=== PATIENT | female | born 1990 | race Caucasian/White ===

== ENCOUNTER → 2016-12-26 | Outpatient (CLI) | payer MEDICAID ==
[~2016-12-26] MED LIST: ALPR1TAB2 PO; ARIP2TAB2 PO; FLUO10CA13 PO; OXYC-302 PO; PNV1TABL4 PO
== END ==
LOC: STAR 09:23
PROVIDERS: ATTEND Otolaryngology
DX: Z02.9 Encounter for administrative examinations, unspecified (principal)

== ENCOUNTER 2017-01-02 05:41 | Day surgery (SDC) | payer MEDICAID ==
[~2017-01-02] VITALS: Ht 175.3 cm; Wt 87.9 kg
[2017-01-02 06:33] VITALS: BP 117/79
[2017-01-02] MEDS ORDERED: LACTATED RINGERS 1,000 ML IV SCH (06:33)
[2017-01-02 06:45] LABS: HCG UR LOT HCG7030192
[2017-01-02 06:56] LABS: HCG UR OBC PASS
[2017-01-02] MEDS ORDERED: FENTANYL PF 100 MCG/2ML ONE ×3 (07:02→08:18)
[2017-01-02] MEDS ORDERED: MIDAZOLAM 1 MG/ML, 2ML ONE (07:03)
[2017-01-02] MEDS ORDERED: OXYMETAZOLINE NASAL SPRAY 0.05%, 15ML ONE (07:05)
[2017-01-02] MEDS ORDERED: ONDANSETRON 2MG/ML, 2ML ONE ×2 (07:10→07:11)
[2017-01-02] MEDS ORDERED: PROPOFOL 10 MG/ML, 20ML ONE (07:10)
[2017-01-02] MEDS ORDERED: SUCCINYLCHOLINE 20 MG/ML, 10ML ONE (07:10)
[2017-01-02] MEDS ORDERED: DEXAMETHASONE 4 MG/ML, 1ML ONE ×2 (07:10→07:11)
[2017-01-02] MEDS ORDERED: ROCURONIUM 10MG/ML,5ML ONE (07:10)
[2017-01-02] MEDS ORDERED: MEPERIDINE/PF 25MG/0.5ML IVPush PRN (07:30)
[2017-01-02] MEDS ORDERED: OXYcodone 5 MG/5 ML ORAL.SOL UDC PO PRN (07:30)
[2017-01-02] MEDS ORDERED: LABETALOL 5MG/ML, 20ML IV PRN (07:30)
[2017-01-02] MEDS ORDERED: ONDANSETRON 2MG/ML, 2ML IVPush PRN (07:30)
[2017-01-02] MEDS ORDERED: ACETAMINOPHEN 325 MG TABLET PO PRN (07:30)
[2017-01-02] MEDS ORDERED: PROMETHAZINE 25 MG/ML, 1ML IV PRN (07:30)
[2017-01-02] MEDS ORDERED: ALBUTEROL SULFATE 2.5 MG/3 ML NPPB PRN (07:30)
[2017-01-02] MEDS ORDERED: MIDAZOLAM 1 MG/ML, 2ML IV PRN (07:30)
[2017-01-02] MEDS ORDERED: hydrALAzine 20 MG/ML, 1ML IV PRN (07:30)
[2017-01-02] MEDS ORDERED: HYDROmorphone 1 MG/ML, 1ML IV PRN (07:30)
[2017-01-02] MEDS ORDERED: NEOSTIGMINE 1 MG/ML, 10ML ONE (07:56)
[2017-01-02] MEDS ORDERED: GLYCOPYRROLATE 0.4 MG/2 ML, 2ML ONE (07:56)
[2017-01-02] MEDS ORDERED: ACETAMINOPHEN 650 MG/20.3 ML UDC ONE (08:18)
[2017-01-02] MEDS ORDERED: OXYcodone 5 MG/5 ML ORAL.SOL UDC ONE (08:19)
[2017-01-02] MEDS: FENTANYL PF 100 MCG/2ML IV PRN ×2 (08:31→08:41)
== END 2017-01-02 10:40 | disposition home or self-care (01) ==
LOC: OUT 05:41
PROVIDERS: ATTEND Otolaryngology
DX: J03.91 Acute recurrent tonsillitis, unspecified (principal); J35.01 Chronic tonsillitis; J35.1 Hypertrophy of tonsils; Z87.39 Personal history of other diseases of the musculoskeletal system and connective tissue
CPT/HCPCS: 42826; 81025; 88304; J0330; J1100; J2250; J2405; J2704; J2710; J3010; J7120